=== PATIENT | female | born 1960 | race African-American/Black ===

== ENCOUNTER 2016-02-26 03:30 | Emergency (ER) | payer OTHER ==
[2016-02-26] MEDS ORDERED: DUONEB INH ONE (06:36)
== END 2016-02-26 08:12 | disposition left against medical advice (07) ==
LOC: ER 03:30
DX: Z53.21 Procedure and treatment not carried out due to patient leaving prior to being seen by health care provider (principal)
CPT/HCPCS: 71010; 93005; 94640